=== PATIENT | female | born 1960 | race Caucasian/White ===

== ENCOUNTER 2016-10-10 10:21 | Day surgery (SDC) | payer OTHER ==
[2016-10-10] MEDS ORDERED: Lactated Ringer's 500 ML IV ONE (11:41)
[2016-10-10 11:49] VITALS: O2SAT 100
[2016-10-10] MEDS ORDERED: Propofol 10 mg/ml Inj (20 ML) ONE (11:56)
[2016-10-10 12:21] VITALS: TEMP 97.1
[2016-10-10 12:37] VITALS: BP 117/67; PULSE 74; RESP 14
== END 2016-10-10 12:53 | disposition home or self-care (01) ==
LOC: H.ENDO 10:21
PROVIDERS: ATTEND Internal Medicine Gastroenterology
DX: Z12.11 Encounter for screening for malignant neoplasm of colon (principal); K64.8 Other hemorrhoids

== ENCOUNTER 2017-07-02 06:46 | Emergency (ER) | payer OTHER, SELFPAY ==
[2017-07-02 06:57] VITALS: BMI 25.7
[2017-07-02 06:58] VITALS: RESP 18; TEMP 97.7; O2SAT 98
[2017-07-02] MEDS ORDERED: Sodium Chloride 0.9% 1,000 ML IV STA (07:26)
--- NOTE | 2017-07-02 07:34 | ED PDOC ---
HPI: General Adult Time Seen by Provider: 07/02/17 07:05 Chief Complaint (Nursing): Dizziness/Lightheaded Chief Complaint (Provider): Dizziness History Per: Patient History/Exam Limitations: no limitations, language barrier (translated by son) Onset/Duration Of Symptoms: Hrs (x2) Severity: Mild Pain Scale Rating Of: 0 Recent Trauma: None Additional Complaint(s): Linsey Calzada is a 57 year old female, with no past medical history, who presents to the emergency department complaining of dizziness associated with nausea onset x2 hours ago. Patient reports x2 episodes, when she woke up at 5: 30am to go to the bathroom when she began feeling dizzy, described as the world is spinning around them, and then at 6:00am with increased dizziness. She denies any fever or vomiting. There was a [place]ian language barrier but son was at bedside, property caretaker was not required as pt requested son to translate.No further medical complaints. PMD: Non p Past Medical History Reviewed: Historical Data, Nursing Documentation, Vital Signs Vital Signs: Last Vital Signs Temp 97.7 F 07/02/17 06:57 Pulse 73 07/03/17 09:03 Resp 18 07/02/17 14:09 BP 130/72 07/02/17 14:09 Pulse Ox 98 07/03/17 09:03 - Medical History PMH: No Chronic Diseases - Surgical History Surgical History: Cholecystectomy - Family History Family History: States: Unknown Family Hx - Social History Current smoker - smoking cessation education provided: No Alcohol: None Drugs: Denies - Home Medications Home Medications: Ambulatory Orders Medication Instructions Recorded Meclizine [Meclizine*] 25 mg PO Q6 PRN #5 tab 07/02/17 - Allergies Allergies/Adverse Reactions: Allergies Allergy/AdvReac Type Severity Reaction Status Date / Time No Known Allergies Allergy Verified 10/10/16 11:40 Review of Systems ROS Statement: Except As Marked, All Systems Reviewed And Found Negative Constitutional: Negative for: Fever Gastrointestinal: Positive for: Nausea. Negative for: Vomiting Neurological: Positive for: Dizziness (world is spinning.) Physical Exam - Reviewed Nursing Documentation Reviewed: Yes Vital Signs Reviewed: Yes - Physical Exam Appears: Positive for: Well, Non-toxic, No Acute Distress Head Exam: Positive for: ATRAUMATIC, NORMAL INSPECTION, NORMOCEPHALIC Skin: Positive for: Normal Color, Warm, Dry Eye Exam: Positive for: Normal appearance, EOMI, PERRL Neck: Positive for: Normal, Painless ROM, Supple Cardiovascular/Chest: Positive for: Regular Rate, Rhythm. Negative for: Murmur Respiratory: Positive for: Normal Breath Sounds. Negative for: Respiratory Distress Extremity: Positive for: Normal ROM. Negative for: Deformity, Swelling Neurologic/Psych: Positive for: Alert, Oriented (x3). Negative for: larry operator II-XII (no focal deficits), Motor/Sensory Deficits, Aphasia, Facial Droop - Laboratory Results Result Diagrams: 07/02/17 08:10 07/02/17 08:10 - ECG ECG Rhythm: Positive for: Sinus Rhythm (normal) Rate: 73 O2 Sat by Pulse Oximetry: 98 (RA) Pulse Ox Interpretation: Normal Medical Decision Making Medical Decision Making: Initial Impression: dizziness. Rule out: vertigo Initial Plan: --EKG --Comp Metabolic Panel --Troponin I --CBC w/ differential --reevaluation 10:16 -Labs normal, sugar mildly elevated 10:31 -Patient still feels dizzy. Ordered CT head 12:[address] FINDINGS: HEMORRHAGE: No intracranial hemorrhage. BRAIN: No mass effect or edema. No atrophy or chronic microvascular ischemic changes. VENTRICLES: Unremarkable. No hydrocephalus. CALVARIUM: Unremarkable. PARANASAL SINUSES: Unremarkable as visualized. No significant inflammatory changes. MASTOID AIR CELLS: Unremarkable as visualized. No inflammatory changes. OTHER FINDINGS: None. IMPRESSION: No acute intracranial abnormalities. No significant findings to account for the clinical presentation. PrintNormal CT of the Head. 13:42 -Upon provider evaluation patient is medically stable, and requires no further treatment in the ED at this time. pt states she feels better w meclizine. Patient will be discharged home with Rx for Meclizine, diagnosed with vertigo. Counseling was provided and all questions were answered regarding diagnosis and need for follow up with PMD. There is agreement to discharge plan. Return if symptoms persist or worsen. Scribe Attestation: Documented by Rigo West, acting as a scribe for Alaina Velazquez MD Provider Scribe Attestation: All medical record entries made by the Scribe were at my direction and personally dictated by me. I have reviewed the chart and agree that the record accurately reflects my personal performance of the history, physical exam, medical decision making, and the department course for this patient. I have also personally directed, reviewed, and agree with the discharge instructions and disposition. Disposition - Clinical Impression Clinical Impression: Vertigo - Patient ED Disposition Is Patient to be Admitted: No Counseled Patient/Family Regarding: Studies Performed, Diagnosis, Need For Followup - Disposition Referrals: [facility] [Outside] [facility] [Outside] Percy Isidro MD [Staff Provider] - Disposition: Routine/Home Disposition Time: 10:10 Condition: IMPROVED Additional Instructions: follow up with your primary doctor in 1-2 days return to the ED with any worsening or concerning symptoms Prescriptions: Meclizine [Meclizine*] 25 mg PO Q6 PRN #5 tab PRN Reason: Dizziness Instructions: Vertigo (ED) Forms: [employer] (Lao) Print Language: POLISH
[2017-07-02 08:21] LABS: BASO % 0.6 % (0.0-2.0); EOS # 0.1 K/uL (0.0-0.7); EOS % 1.6 % (0.0-4.0); HEMATOCRIT 37.1 % (34.0-47.0); LYMPH # 0.9 K/uL (1.0-4.3); MEAN CELL VOLUME 90.3 fl (81.0-99.0); MEAN CORPUSCULAR HEMOGLOBIN 30.4 pg (27.0-31.0); MEAN CORPUSCULAR HGB CONC 33.7 g/dL (33.0-37.0); MEAN PLATELET VOLUME 9.3 fl (7.2-11.7); MONO # 0.3 K/uL (0.0-0.8); MONO % 5.4 % (0.0-10.0); NEUT # 5.1 K/uL (1.8-7.0); NEUT % 78.4 % (50.0-75.0); RED CELL DISTRIBUTION WIDTH 13.4 % (11.5-14.5); WHITE BLOOD COUNT 6.5 K/uL (4.8-10.8)
[2017-07-02 08:36] LABS: ALB/GLOB RATIO 1.4 (1.0-2.1); ALKALINE PHOSPHATASE 75 U/L (38-126); ALT/SGPT 47 U/L (9-52); AST/SGOT 34 U/L (14-36); BILIRUBIN,TOTAL 0.5 mg/dl (0.2-1.3); BLOOD UREA NITROGEN 13 mg/dl (7-17); CALCIUM 9.2 mg/dL (8.4-10.2); CARBON DIOXIDE 26 mmol/L (22-30); CHLORIDE 100 mmol/L (98-107); GFR AFRICAN-AMERICAN > 60; GLUCOSE,RANDOM 118 mg/dL (65-105); POTASSIUM 3.6 MMOL/L (3.6-5.0); SODIUM 136 mmol/l (132-148); TOTAL PROTEIN 7.8 G/DL (6.3-8.2)
[2017-07-02 08:58] VITALS: PULSE 73
--- NOTE | 2017-07-02 12:55 | CT ---
PROCEDURE: CT HEAD WITHOUT CONTRAST. HISTORY: headache COMPARISON: None available. TECHNIQUE: Axial computed tomography images were obtained through the head/brain without intravenous contrast. Coronal and sagittal reconstructed images. Radiation dose: Total exam DLP = 861.51 mGy-cm. This CT exam was performed using one or more of the following dose reduction techniques: Automated exposure control, adjustment of the mA and/or kV according to patient size, and/or use of iterative reconstruction technique. FINDINGS: HEMORRHAGE: No intracranial hemorrhage. BRAIN: No mass effect or edema. No atrophy or chronic microvascular ischemic changes. VENTRICLES: Unremarkable. No hydrocephalus. CALVARIUM: Unremarkable. PARANASAL SINUSES: Unremarkable as visualized. No significant inflammatory changes. MASTOID AIR CELLS: Unremarkable as visualized. No inflammatory changes. OTHER FINDINGS: None. IMPRESSION: No acute intracranial abnormalities. No significant findings to account for the clinical presentation. PrintNormal CT of the Head.
[2017-07-02 14:10] VITALS: BP 130/72
--- NOTE | 2017-07-03 19:30 | CARD ---
APPROVED REPORT EKG Measurement Heart [id number] <Conclusion> Normal sinus rhythm Normal ECG
== END 2017-07-02 13:59 | disposition home or self-care (01) ==
LOC: H.ER 06:46
DX: R42 Dizziness and giddiness (principal)
CPT/HCPCS: 70450; 80053; 84484; 85025; 93005; 99284; J2405; J7040